=== PATIENT | male | born 1940 | race Caucasian/White ===

== ENCOUNTER 2018-12-22 01:47 | Inpatient (IN) ==
[2018-12-22] MEDS ORDERED: NS 1,000 ML IV ONE ×2 (02:21→08:01)
--- NOTE | 2018-12-22 02:25 | PROVIDER DOCUMENTATION ---
HPI-Abdominal Pain/GI Problem - General Chief Complaint: Vomiting Stated Complaint: VOMITING ALL DAY (HOSPICE) Time Seen by Provider: 12/22/18 01:54 Source: family Allergies/Adverse Reactions: Patient Allergies Allergy/AdvReac Type Severity Reaction Status Date / Time ciprofloxacin [From Cipro] Allergy Unknown Verified 12/13/15 05:52 ciprofloxacin HCl * Allergy Unknown Verified 12/13/15 05:52 [From Cipro] Sulfa (Sulfonamide Allergy Unknown Verified 12/09/15 09:10 Antibiotics) Home Medications: Home Medication List Medication Instructions Recorded Confirmed Last Taken Type Lisinopril [Zestril] 5 mg PO DAILY 12/09/15 12/13/15 12/12/15 08:00 History Metformin [Glucophage] 2 tab PO HS 12/09/15 12/13/15 12/11/15 History Ondansetron HCl [Zofran] 4 mg PO Q4H PRN PRN #10 tablet 12/13/15 Unknown Rx Amoxicillin/Potassium Clav 1 ea PO BID #10 tab 12/25/18 Unknown Rx [Augmentin 875-125 Tablet] Apixaban [Eliquis] 10 mg PO BID tab 12/25/18 Unknown Rx Hydrocodone/APAP 10 mg/325 mg 1 ea PO Q6H PRN PRN tab 12/25/18 Unknown Rx [[place]-10] Insulin Glargine [Lantus Insulin] 18 unit SUBQ DAILY unit 12/25/18 Unknown Rx Magnesium Hydroxide [Milk of 30 ml PO DAILY udc 12/25/18 Unknown Rx Magnesia] - History of Present Illness-ABD Nature of Presenting Problems: Presents to the with complaints of nausea and vomiting since around 12pm this afternoon. Daughter states that around lunch time the patient started having some nsuea and vomiting. She gave him a phenergan and this didnt help. She repeated the dose of phenergan this evening and a dose of morphine that the patient is on with hospice and he threw those up. She did not contact hospice prior to bringing him to the hospital. She denies any fevers or chills. He has not been eating much today. She states that he is vomiting up just the pepsi that she gives him. He is on hospice for multiple strokes and he is at his baseline mental status. He was given a dose of zofran in the ambulance and now is only having hiccups. She states that this week when he would get the hiccups he would eventually throw up. Patient is unable to tell me any history of symptoms and has very limited to no verbal responses. He is alert. Review of Systems - Adult - REVIEW OF SYSTEMS - ADULT Constitutional: reports: see HPI Eyes: reports: no symptoms reported Ears, Nose, Mouth & Throat: reports: no symptoms reported Cardiovascular: reports: no symptoms reported Respiratory: reports: no symptoms reported Gastrointestinal: reports: nausea, vomiting. denies: abdominal pain, constipation, diarrhea Genitourinary: reports: no symptoms reported Musculoskeletal: reports: no symptoms reported Integumentary: reports: no symptoms reported Neurological: reports: no symptoms reported Psychiatric: reports: no symptoms reported Endocrine: reports: no symptoms reported Hematologic/Lymphatic: reports: no symptoms reported Allergic/Immunologic: reports: no symptoms reported All Other Systems: Reviewed and Negative Past History - Adult - PAST MEDICAL HISTORY-ADULT Review of Records: reports: Old Records Reviewed Physical Exam-General - PHYSICAL EXAM-ADULT Initial Vital Signs Reviewed: Yes - CONSTITUTIONAL General Appearance: alert, no apparent distress, thin, other (hiccups) - EYES Eyes: PERRL/EOMI - HEAD, EARS, NOSE, MOUTH & THROAT HENMT: normocephalic/atraumatic, moist mucous membranes - NECK Neck: non-tender, full range of motion, supple, normal inspection - RESPIRATORY Respiratory: chest non-tender, lungs clear, normal breath sounds, no respiratory distress, no accessory muscle use - CARDIOVASCULAR Cardiovascular: normal peripheral pulses, regular rate, rhythm, no murmur - GASTROINTESTINAL (ABDOMEN) Abdominal Exam: normal bowel sounds, non tender, soft - MUSCULOSKELETAL Back Exam: normal inspection Extremity: normal inspection - SKIN Integumentary: normal color, warm/dry - NEUROLOGIC Neurologic: other (right sided motor deficits) - PSYCHIATRIC Psych/Mental Status: normal mood/affect, disoriented x 3 Progress - PLAN OF CARE/RESULTS Progress/Plan/Lab Results: Vital Signs - 8 hr 12/22/18 01:59 Temperature 97.4 F L Pulse Rate 60 Respiratory Rate 16 Blood Pressure 146/73 O2 Sat by Pulse Oximetry 96 Result Diagrams: 12/25/18 06:28 12/25/18 06:28 - REASSESSMENT Reassessment #1 Time Reassessed: 07:15 Status: unchanged (lengthy discussion w/ daughter (she is pending POA status) re: plan of care. daughter makes clear whereas she supports notion of DNR, she otherwise would want everything done in an acute situtation. She would support khadijah'x if indicated; she did not respond directly to question of AC for DVT noted on CT. will discuss w/ Dr. Lawson (covering for [place]) admission and initial tx plan.) - CONSULTS/PCP/HOSPITALIST Notification #1 *Consult/PCP/Hospitalist*: Dr. Lawson Time Discussed: 07:57 Consult Disposition: Admit - CHANGE OF SHIFT REPORT (ED Provider) 1 Report Given and Care Transferred to:: Dr Jacobs Time of Transfer: 07:00 Items Pending: Other (Spoke with daughter about lab and imaging findings. SHe does not know how far she wants to go with treatment. She is contacting hospice and will get back with us. SPoke to Dr Jacobs on coming physician who will followup with her wishes and proceed with admission vs DC.) Departure - Departure Date of Disposition Decision: 12/22/18 Time of Disposition Decision: 07:57 DIAGNOSIS: Acute cholecystitis, DVT (deep venous thrombosis) Disposition: ADMITTED INPATIENT 09 Certified Medical Emergency: Emergent Condition: Stable - Critical Care Note This patient required my direct & personal management of CC.: No Attestation - Physician/ ENRRIQUE Attestation The physician spent face to face time with patient:: Yes Advanced Practice Provider documentation review:: Supervising physician onsite and consulted in the evaluation and care of this patient. The physician did have a face to face encounter with the patient.
[2018-12-22 05:02] LABS: AGAP 16; ALB/GLOB RATIO 1.2; ALBUMIN 3.8 g/dL (3.5-5.0); ALKALINE PHOSPHATASE 116 U/L (32-122); AMYLASE 34 U/L (20-200); BUN 9 mg/dL (8-22); CALCIUM 8.3 mg/dL (8.8-10.2); CHLORIDE 101 mmol/L (98-107); COSMO 294; CREATININE 0.9 mg/dL (0.7-1.2); ESTIMATED GFR > 60; GLUCOSE 314 mg/dL (70-104); GOT 10 U/L (10-34); GPT 7 U/L (10-44); LIPASE 14 U/L (13-60); POTASSIUM 3.9 mmol/L (3.5-5.1); SODIUM 142 mmol/L (136-145); TCO2 25 mmol/L (25-35); TOTAL BILIRUBIN 1.35 mg/dL (0.20-1.00)
[2018-12-22] MEDS ORDERED: ROCEPHIN 1 GM in NS 50 ML IV ONE (08:00)
[2018-12-22] MEDS ORDERED: ZOFRAN IV PRN (08:01)
[2018-12-22] MEDS ORDERED: HUMULIN R SUBQ ONE (08:01)
--- NOTE | 2018-12-22 09:21 | Diag Imaging Result Doc PS360 ---
EXAM: CT ABD/PELVIS W/IV CONT ONLY INDICATION: nausea and vomiting TECHNIQUE: This exam was performed using automated exposure control, adjustment of mA or kV according to patient size, and/or use of iterative reconstruction technique. COMPARISON: None. FINDINGS: There is subsegmental atelectasis at the lung bases. There are small calcified foci at the lung bases likely representing granulomata. The gallbladder is distended and there is suggestion of mild pericholecystic fluid or wall thickening. Early or mild cholecystitis cannot be excluded. There is minimal hepatic steatosis. The pancreas is atrophic and is unremarkable, otherwise. The spleen and adrenal glands are essentially unremarkable. The renal contours are lobulated suggesting persistent lobulations versus renal cortical scarring. There are a few small renal cysts bilaterally. There is no hydronephrosis. The urinary bladder is normally distended with no wall thickening. There are a couple of punctate stones layering posteriorly in the lumen of the urinary bladder, probably chronic. There is moderate rectal fecal retention. There is moderate uncomplicated sigmoid colonic diverticulosis. There is no focal bowel wall thickening and no obstructive bowel pattern. The remainder of the GI tract is essentially unremarkable. No significant free fluid or free abdominal gas is identified. There is multilevel degenerative arthropathy throughout the spine. There is no evidence of acute osseous abnormality. There is thrombosis of the right external iliac vein and right common femoral vein. IMPRESSION: 1.Distended gallbladder with suggestion of mild pericholecystic fluid or mild wall thickening. Early or mild cholecystitis cannot be excluded. Please correlate clinically. 2.Right external iliac and right common femoral vein thrombosis. 3.Moderate amount of retained fecal material in the rectum. 4.Other incidental/nonacute findings detailed above. Electronically signed by Ross Lara 12/22/2018 9:18 AM
--- NOTE | 2018-12-22 10:03 | HISTORY AND PHYSICAL ---
CHIEF COMPLAINT: Nausea and upper abdominal pain. PRESENT ILLNESS: This is one of several fairly recent [facility] admissions for this 78-year- old, white man, a patient of Dr. Squires, who presented to the emergency room with a history of nausea and vomiting for several hours. He had no hematemesis. There has been no melena. History is significant for stroke and right hemiparesis with expressive aphasia. He does not respond to verbal stimulus but seems alert. He had been in rehab but ran out a rehab days and was placed on hospice. After evaluation, CT of his abdomen in the emergency room revealed possible cholecystitis. The daughter was anxious for him to have surgery if needed. It was explained to her that he would need to be off hospice if that became necessary and to possibly return to hospice at discharge. He was also found to have DVT in the right iliac system. He has been afebrile. PAST MEDICAL HISTORY: Significant for cerebrovascular disease with several strokes and debilitation causing him to be bedridden. CURRENT MEDICATIONS: Insulin, Lantus at bedtime, Zofran p.o. for nausea, [place] 10/325 q.6 hours p.r.n. pain, lisinopril 5 mg one daily, metformin 500 mg once daily. ALLERGIES: Cipro and sulfa. REVIEW OF SYSTEMS: Cerebrovascular disease, expressive dysphagia, possible dementia, abdominal discomfort and nausea as above. There is no history of smoking or alcohol usage. PHYSICAL EXAMINATION: VITAL SIGNS: Temperature 97.8 degrees, heart rate 73, respirations 16, blood pressure 129/53, O2 saturation on room air of 100%. GENERAL: Patient is alert but not verbally responsive. HEENT: Pupils are equal, round, and reactive to light. There is some facial drooping on the right side. There is right hemiparesis. HEART: Regular in rate and rhythm with no murmur, rub, or gallop. LUNGS: Clear with no rales or rhonchi. ABDOMEN: Soft with no mass, tenderness, or organomegaly. There is no apparent tenderness to palpation of the abdomen. Bowel sounds are normal. EXTREMITIES: Evidence of knee surgery on the right. There is no ankle edema. RECTAL AND GENITALIA: Deferred. IMPRESSION: 1. Possible cholecystitis. 2. Deep venous thrombosis on the right. 3. Cerebrovascular disease, right hemiparesis, expressive dysphagia, and possible dementia. PLAN: Admit for further evaluation and treatment, intravenous antibiotic with Rocephin, nausea control with Zofran, clear liquids p.o. Admit for further evaluation and treatment. If there is increasing abdominal pain or nausea, surgical consultation will be considered. cc: Gonzalo Lawson MD
[2018-12-22] MEDS: ELIQUIS PO SCH ×2 (10:30→21:49)
[2018-12-22] MEDS: NORCO-10 PO PRN (11:02)
[2018-12-22 11:30] LABS: BASO# 0.02 X1000 (0.0-0.2); BASO% 0.2 % (0.0-0.8); EOS# 0.03 X1000 (0.0-0.7); EOS% 0.3 % (0.0-10.0); HEMATOCRIT 41.4 % (42.0-52.0); HEMOGLOBIN 13.6 g/dL (14.0-18.0); IMM GRAN# 0.02 X1000 (0.0-0.04); IMM GRAN% 0.2 % (0.0-0.5); LYMPH# 1.18 X1000 (1.2-3.4); LYMPH% 12.6 % (20.5-51.1); MCH 28.5 PG (27-31); MCHC 32.9 g/dL (33-37); MCV 86.8 FL (81-99); MONO# 0.68 X1000 (0.11-0.59); MONO% 7.3 % (1.7-9.3); MPV 10.2 FL (7.4-10.4); NEUT# 7.43 X1000 (1.4-6.5); NEUT% 79.4 % (42.2-75.2); PLT 231 X1000 (130-400); RBC 4.77 XMIL (4.7-6.1); RDW 14.6 % (11.5-14.5); WBC 9.36 X1000 (4.8-10.8)
[2018-12-22] MEDS: HUMALOG SUBQ SCH ×2 (16:57→21:59)
[2018-12-22] MEDS: DEMEROL IV PRN ×2 (17:31→21:49)
[2018-12-22] MEDS ORDERED: DULCOLAX PR ONE (20:27)
[2018-12-22] MEDS: POTASSIUM CHLORIDE 10 MEQ in NS 1,000 ML IV SCH (21:45)
[2018-12-22] MEDS: ZOSYN 3.375 GM in NS 50 ML IV SCH (21:48)
[2018-12-22] MEDS: GLUCOPHAGE PO SCH ×2 (21:48→22:03)
[2018-12-23] MEDS: NORCO-10 PO PRN ×2 (00:40→13:24)
[2018-12-23] MEDS: ZOSYN 3.375 GM in NS 50 ML IV SCH ×4 (04:07→20:16)
[2018-12-23] MEDS: HUMALOG SUBQ SCH ×3 (06:42→18:24)
[2018-12-23 07:05] LABS: BASO# 0.02 X1000 (0.0-0.2); BASO% 0.1 % (0.0-0.8); EOS# 0.01 X1000 (0.0-0.7); EOS% 0.1 % (0.0-10.0); HEMATOCRIT 39.4 % (42.0-52.0); HEMOGLOBIN 13.1 g/dL (14.0-18.0); IMM GRAN# 0.03 X1000 (0.0-0.04); IMM GRAN% 0.2 % (0.0-0.5); LYMPH% 8.6 % (20.5-51.1); MCHC 33.2 g/dL (33-37); MCV 87.2 FL (81-99); MONO# 1.12 X1000 (0.11-0.59); MONO% 7.5 % (1.7-9.3); MPV 10.4 FL (7.4-10.4); NEUT# 12.55 X1000 (1.4-6.5); NEUT% 83.5 % (42.2-75.2); PLT 229 X1000 (130-400); RBC 4.52 XMIL (4.7-6.1); RDW 14.8 % (11.5-14.5); WBC 15.03 X1000 (4.8-10.8)
--- NOTE | 2018-12-23 07:12 | PROGRESS NOTE ---
DATE: 12/23/2018 SUBJECTIVE: A 78-year-old white gentleman, known case of longstanding diabetes mellitus, hypertension, hyperlipidemia, CVA with right-sided weakness. Admitted with vague abdominal pain, nausea, vomiting. CT scan did reveal questionable mild cholecystitis. The patient does have DVT of the right external iliac and right common femoral vein. The patient is on IV antibiotics, symptomatic treatment. The patient also found to have significant fecal impaction, which we are treating symptomatically. The patient has expressive aphasia. History part is limited. OBJECTIVE: Vital Signs: His vital signs noted. Neck: Supple. No JVD. Lungs: Bibasilar crepitations. Heart: S1 and S2 heard. Abdomen: Soft, globular. Bowel sounds present. Extremities: No cyanosis, clubbing. No acute DVT. Central Nervous System: Alert, awake. The patient does have expressive aphasia and right-sided weakness. DIAGNOSTIC DATA: Morning labs for this morning are pending. CONSIDERATION: CT scan did reveal distended gallbladder with suggestion of mild pericholecystitis fluid or mild wall thickening; right femoral vein thrombosis, fecal impaction, CVA with right- sided weakness, diabetes mellitus, hypertension. The patient was on hospice. Considering acute DVT, I decided to treat the patient conservatively. I am going to get abdominal ultrasound. We will check venous Doppler both lower legs. Continue IV antibiotics. Symptomatic treatment. Close observation. The overall plan discussed with the patient's family. They are in agreement. cc: MD Gonzalo Dent MD
[2018-12-23 07:27] LABS: AGAP 14; ALB/GLOB RATIO 1.2; ALBUMIN 3.6 g/dL (3.5-5.0); ALKALINE PHOSPHATASE 107 U/L (32-122); BUN 8 mg/dL (8-22); CALCIUM 9.1 mg/dL (8.8-10.2); CHLORIDE 104 mmol/L (98-107); COSMO 285; ESTIMATED GFR > 60; GLUCOSE 196 mg/dL (70-104); GOT 14 U/L (10-34); GPT 11 U/L (10-44); MAGNESIUM 1.6 mg/dL (1.5-2.7); POTASSIUM 3.9 mmol/L (3.5-5.1); SODIUM 141 mmol/L (136-145); TCO2 23 mmol/L (25-35); TOTAL BILIRUBIN 2.14 mg/dL (0.20-1.00); TOTAL PROTEIN 6.5 g/dL (6.3-8.3)
--- NOTE | 2018-12-23 10:01 | Diag Imaging Result Doc PS360 ---
EXAM: CHEST-1 VIEW HISTORY: cough TECHNIQUE: Chest single view COMPARISON: 2018 FINDINGS: The lungs are well expanded. The heart is not enlarged. There are sternal wires. The vessels are not distended. There are no infiltrates. No effusion identified. IMPRESSION: No pneumonia Electronically signed by Niraj Ruiz 12/23/2018 9:59 AM
[2018-12-23] MEDS: POTASSIUM CHLORIDE 10 MEQ in NS 1,000 ML IV SCH ×2 (10:02→20:17)
[2018-12-23] MEDS: ELIQUIS PO SCH ×2 (10:03→20:16)
[2018-12-23] MEDS: PRINIVIL PO SCH (10:03)
[2018-12-23] MEDS: MILK OF MAGNESIA PO SCH (10:03)
--- NOTE | 2018-12-23 10:04 | Diag Imaging Result Doc PS360 ---
EXAM: US ABDOMEN-COMPLETE HISTORY: Abdominal Pain TECHNIQUE: Abdominal ultrasound FINDINGS: Suboptimal exam due to the patient's body habitus and condition. The spleen is mildly prominent measuring 13.5 cm. Normal left kidney. No hydronephrosis. Normal right kidney. No hydronephrosis. No focal hepatic abnormality. The aorta, inferior vena cava, and pancreas are all obscured. No ascites. The gallbladder is only partially seen. Questionable mild thickening to the wall. The common bile that measures 2 mm. IMPRESSION: 1.Mildly prominent spleen 2.Questionable gallbladder wall thickening Electronically signed by Niraj Ruiz 12/23/2018 10:02 AM
--- NOTE | 2018-12-23 10:12 | Diag Imaging Result Doc PS360 ---
EXAM: ABDOMEN FLAT/UPRIGHT HISTORY: sbo TECHNIQUE: Two views COMPARISON: None. FINDINGS: The cecum is dilated to 11 cm. No small bowel distention is identified. No free air is appreciated. There is a 7 cm fecal mass within the rectum. There are extensive lumbar spine degenerative changes and a focal defect right iliac wing. IMPRESSION: 1.Moderate fecal retention rectal vault with distention of the cecum to 11 cm. Findings are consistent with fecal impaction. 2.No evidence for small bowel distention. Electronically signed by Linda Alarcon 12/23/2018 10:10 AM
[2018-12-24] MEDS: POTASSIUM CHLORIDE 10 MEQ in NS 1,000 ML IV SCH (00:31)
[2018-12-24] MEDS: HUMALOG SUBQ SCH ×4 (03:42→18:04)
[2018-12-24] MEDS: ZOSYN 3.375 GM in NS 50 ML IV SCH ×5 (03:42→21:17)
[2018-12-24] MEDS ORDERED: NORCO-10 PO PRN (06:30)
--- NOTE | 2018-12-24 06:54 | PROGRESS NOTE ---
DATE: 12/24/2018 SUBJECTIVE: Mr. Louis is doing fair. No high-grade fever or chills. The patient found to have extensive DVT involving the right leg/ denied any nausea or vomiting. Oral intake variable. No diarrhea. Patient does have significant constipation. Patient had history of CVA with right hemiplegia and also significant or extensive DVT involving the right leg. Oral intake is fair. Denied any chest pain or palpitations. OBJECTIVE: Vital signs: Noted. Neck: Is supple. No JVD. Lungs: Bibasilar crepitations. Heart: S1 and S2 heard. Abdomen: Soft, no distention. Bowel sounds present. I did not appreciate tenderness right upper quadrant. AVID EDITOR: Alert, awake, not communicating. Patient does have right-sided weakness. The patient does have swelling of the right lower limb. PATIENT'S PROBLEM: 1. Includes possible cholecystitis but again patient is afebrile. The patient had mild leukocytosis yesterday. I am going to continue antibiotics. Abdominal ultrasound did reveal prominent spleen, questionable gallbladder wall thickening. 2. Extensive DVT involving the right leg. We will treat patient with Eliquis 10 mg twice a day for 7 days and then will change him to 5 mg twice a day. 3. Fecal impaction. Discussed with the nurses to do manual disimpaction. 4. CVA with right-sided weakness. 5. Diabetes mellitus. Accu-Chek results reviewed. 6. History of hypertension. Blood pressure is satisfactory. OVERALL PLAN: Discussed at length with the family. They are in agreement. Overall prognosis fair to guarded. cc: MD Gonzalo Dent MD
[2018-12-24] MEDS ORDERED: MILK OF MAGNESIA PO SCH (09:00)
[2018-12-24] MEDS: MILK OF MAGNESIA PO SCH (09:49)
[2018-12-24] MEDS: PRINIVIL PO SCH (09:49)
[2018-12-24] MEDS: ELIQUIS PO SCH ×2 (09:49→21:18)
[2018-12-24] MEDS: LANTUS INSULIN SUBQ SCH (09:51)
[2018-12-25] MEDS: HUMALOG SUBQ SCH ×3 (00:20→11:12)
[2018-12-25] MEDS: ZOSYN 3.375 GM in NS 50 ML IV SCH ×3 (03:44→09:46)
[2018-12-25 06:57] LABS: BASO# 0.02 X1000 (0.0-0.2); BASO% 0.2 % (0.0-0.8); EOS# 0.18 X1000 (0.0-0.7); EOS% 1.6 % (0.0-10.0); HEMATOCRIT 35.1 % (42.0-52.0); HEMOGLOBIN 11.4 g/dL (14.0-18.0); IMM GRAN# 0.02 X1000 (0.0-0.04); IMM GRAN% 0.2 % (0.0-0.5); LYMPH# 1.55 X1000 (1.2-3.4); LYMPH% 13.7 % (20.5-51.1); MCH 28.4 PG (27-31); MCHC 32.5 g/dL (33-37); MCV 87.5 FL (81-99); MONO# 0.77 X1000 (0.11-0.59); MONO% 6.8 % (1.7-9.3); MPV 10.3 FL (7.4-10.4); NEUT# 8.78 X1000 (1.4-6.5); NEUT% 77.5 % (42.2-75.2); PLT 228 X1000 (130-400); RBC 4.01 XMIL (4.7-6.1); RDW 14.7 % (11.5-14.5); WBC 11.32 X1000 (4.8-10.8)
[2018-12-25 07:16] LABS: AGAP 11; ALKALINE PHOSPHATASE 95 U/L (32-122); BUN 11 mg/dL (8-22); CALCIUM 8.7 mg/dL (8.8-10.2); CHLORIDE 103 mmol/L (98-107); COSMO 282; CREATININE 0.9 mg/dL (0.7-1.2); ESTIMATED GFR > 60; GLUCOSE 154 mg/dL (70-104); GOT 8 U/L (10-34); GPT 7 U/L (10-44); MAGNESIUM 1.6 mg/dL (1.5-2.7); POTASSIUM 3.2 mmol/L (3.5-5.1); SODIUM 140 mmol/L (136-145); TCO2 26 mmol/L (25-35); TOTAL BILIRUBIN 1.02 mg/dL (0.20-1.00)
[2018-12-25] MEDS ORDERED: POTASSIUM CHLORIDE 20 MEQ/SWI 20 MEQ/100 ML IVPB IV ONE (07:17)
[2018-12-25] MEDS ORDERED: KLOR-CON PO ONE (07:17)
[2018-12-25] MEDS: MILK OF MAGNESIA PO SCH ×2 (09:39→09:47)
[2018-12-25] MEDS: PRINIVIL PO SCH (09:39)
[2018-12-25] MEDS: LANTUS INSULIN SUBQ SCH (09:39)
[2018-12-25] MEDS: ELIQUIS PO SCH (09:39)
[2018-12-25 11:31] VITALS: BP 144/54
--- NOTE | 2018-12-26 13:18 | DISCHARGE SUMMARY ---
ADMISSION DATE: 12/22/2018 DISCHARGE DATE: 12/25/2018 FINAL DISCHARGE DIAGNOSES: 1. Acute cholecystitis. 2. Deep vein thrombosis involving the right leg. 3. Cerebrovascular accident with right-sided weakness. 4. Diabetes mellitus. 5. Hypertension. 6. Fecal impaction. 7. Hypokalemia. 8. Diabetes mellitus. HISTORY OF PRESENT ILLNESS: Mr. Louis is a 78-year-old white gentleman, admitted with abdominal pain, nausea. Workup in the emergency room did reveal possible cholecystitis. The patient evaluated and admitted to the hospital. The patient was treated conservatively with IV antibiotics, IV fluid and symptomatic care. HOSPITAL COURSE: The patient found to have DVT involving the right leg. It was involving the right external iliac, right common femoral vein. The patient was started on anticoagulation. Patient tolerated anticoagulation well. Because of acute DVT, I treated the patient conservatively. His clinical condition improved. The patient had significant fecal impaction which I treated symptomatically with enema, laxative and also digital evacuation. Patient had a good bowel movement last night, and also today on rectal exam his stool was soft. Patient's oral intake seems to be improving. Patient was eager to go home. Patient and daughter want to be on hospice. I did discuss with daughter, and she requested DNR 1 as per patient's wishes. Overall patient is doing better. He does have expressive aphasia. Right-sided weakness. PHYSICAL EXAMINATION: Vital Signs: His vital signs noted. Patient remains afebrile. Neck: Supple. No JVD. Lungs: Bilateral good air entry present. Few basal crepitations. CVS: S1 and S2 heard. Abdomen: Soft, nontender. Bowel sounds present. Extremities: No cyanosis, clubbing. Swelling of the right leg which is going down. ENTRY PROCESSOR: Alert, awake. The patient does have right-sided weakness. Evidence of DVT in the right leg. Neurologic: Patient does have expressive aphasia. Laboratory done today includes WBC count 11.32, hemoglobin 11.4, hematocrit 35.1, platelet count 228. Electrolytes: Potassium was 3.2, magnesium 1.6. I supplemented his potassium prior to discharge. Overall patient received maximum benefit of hospitalization. I am going to discharge him home on Eliquis 10 mg b.i.d. for 3 more days, then he will take 5 mg b.i.d. Continue the rest of the treatment. Augmentin b.i.d. for 6 more days. Monitor Accu-Chek at home. Fall precaution. The patient is going home with hospice. Overall discharge plan discussed with the daughter. She is in agreement. His chest x-ray revealed no pneumonia. CT scan of the abdomen and pelvis results noted which revealed distended gallbladder. There is suggestion of mild pericholecystic fluid. Early or mild cholecystitis cannot be excluded. Right external iliac and right common femoral vein thrombosis. Moderate amount of retained fecal material in the rectum. Overall discharge condition satisfactory. Overall prognosis fair to guarded, and patient and family aware of prognosis. cc: MD Gonzalo Dent MD
--- NOTE | 2018-12-27 09:56 | Extremity Venous Study ---
PROCEDURE NAME: Venous U/S Bilateral Legs - 12/23/2018 LABOR REPRESENTATIVE: Ming. REQUESTING PHYSICIAN: Tavia. INDICATIONS: DVT noted on CT findings. In the right lower extremity, there is extensive deep venous thrombus noted from the common femoral vein extending distally to the calf. There is diminished or absent flow noted at each location. There is also thrombus within the right greater saphenous vein. In the left lower extremity, there is no obvious deep or superficial thrombus noted with maintained flow at each location. IMPRESSION: Extensive occlusive deep venous thrombosis (DVT) noted in the right lower extremity. No evidence of left lower extremity thrombus. cc: MD Gunnar Barrios MD Robert Allen, MD
--- NOTE | 2019-01-09 08:14 | DISCHARGE SUMMARY ---
ADMISSION DATE: 12/22/2018 DISCHARGE DATE: 12/25/2018 ADDENDUM: Considering patient's weight loss and poor oral intake, he does qualify for severe malnutrition. cc: MD Gonzalo Dent MD
== END 2018-12-25 14:35 | disposition hospice, home (50) | DRG 444 ==
LOC: ED 01:47 → 4N 08:27
PROVIDERS: ADMIT Family Medicine; ATTEND Internal Medicine